=== PATIENT | male | born 1995 | race Two or more races ===

== ENCOUNTER 2017-06-21 20:16 | Emergency (ER) | payer OTHER ==
[2017-06-21] MEDS ORDERED: Ketorolac 30 MG/ML SDV ONE (21:08)
--- NOTE | 2017-06-22 17:51 | CR ---
EXAM DATE: 06/21/17 PATIENT'S AGE: 21 Patient: CHRISTINE OSULLIVAN Facility: [place], [place] Site . Site : 1993 Study: XRay Chest -06/21/2017 8:54:24 PM Ordering Physician: HUNTER Final Report: HISTORY: Chest pain x3 days, history of ablation. FINDINGS: AP portable chest radiograph demonstrates a normal cardiac silhouette. Pulmonary vasculature is free of cephalization. No consolidation or pleural effusion is seen. Bony structures are normal. IMPRESSION: No acute cardiopulmonary disease. Dictated by Edith Patton MD @ 06/21/2017 9:00:25 PM Dictated by: Edith Patton MD @ 06/21/2017 21:01:14 (Electronic Signature) Report Signed by Proxy. [facility]
[2017-06-22 19:54] LABS: CHLORIDE,CL 104 mmol/L (98-107); SODIUM,NA 137 mmol/L (136-148)
== END 2017-06-21 23:15 | disposition home or self-care (01) ==
LOC: MW.ED 20:16
DX: R07.89 Other chest pain (principal); Z88.1 Allergy status to other antibiotic agents; Z88.8 Allergy status to other drugs, medicaments and biological substances
CPT/HCPCS: 36415; 71045; 71045-26; 80053; 84484; 85025; 93005; 96361; 96374; 99285-25